=== PATIENT | female | born 1990 | race Caucasian/White ===

== ENCOUNTER 2023-09-16 12:17 | Emergency (ER) | payer MEDICAID ==
[~2023-09-16] VITALS: Ht 165.1 cm; Wt 54.4 kg
[2023-09-16 12:55] VITALS: BP 110/64; TEMP 97.7; O2SAT 100
== END 2023-09-16 12:56 | disposition home or self-care (01) ==
LOC: ER 12:17
DX: Z73.3 Stress, not elsewhere classified (principal); F41.0 Panic disorder [episodic paroxysmal anxiety]; E05.90 Thyrotoxicosis, unspecified without thyrotoxic crisis or storm; Z60.2 Problems related to living alone